=== PATIENT | female | born 1995 | race Hispanic/Latino ===

== ENCOUNTER 2019-10-15 11:59 | Emergency (ER) | payer OTHER, SELFPAY ==
[~2019-10-15] VITALS: Ht 165.1 cm; Wt 103.2 kg
[2019-10-15] MEDS ORDERED: NS 1,000 ML IV ONE (13:15)
[2019-10-15] MEDS ORDERED: ISOVUE-370 76% 100ML VIAL (Q9967) As Ordered ONE (13:38)
[2019-10-15 13:41] LABS: HEMATOCRIT 40.9 % (36.0-47.0); HEMOGLOBIN 13.6 g/dl (12.0-15.5); MEAN CORPUSCULAR HEMOGLOBIN 29.1 pg (27.0-33.0); MEAN CORPUSCULAR HGB CONC 33.3 g/dl (32.0-36.5); MEAN CORPUSCULAR VOLUME 87.6 fl (80.0-96.0); PLATELET COUNT, AUTOMATED 323 10^3/uL (150-450); RED BLOOD COUNT 4.67 10^6/uL (4.00-5.40); WHITE BLOOD COUNT 5.3 10^3/uL (4.0-10.0)
--- NOTE | 2019-10-15 14:30 | REP ---
CT ANGIOGRAM CHEST: TECHNIQUE: Axial contrast enhanced images from the thoracic inlet to the upper abdomen using 100 mL Isovue 370 intravenous contrast material with multiplanar reformations. There is no evidence of pulmonary embolism. There is no thoracic aortic aneurysm or dissection. Residual thymic tissue is seen in the anterior mediastinum. There is no mediastinal, hilar, or chest wall lymphadenopathy. There is no pleural or pericardial effusion. There are bilateral breast implants noted. The lungs are clear with no infiltrate. There is a small hiatal hernia. IMPRESSION: No CT evidence of pulmonary embolism. Small hiatal hernia. Electronically Signed by Marshall Gonzalez MD 10/15/2019 07:36 P
[2019-10-15 14:50] VITALS: BP 121/75
== END 2019-10-15 15:02 | disposition home or self-care (01) ==
LOC: M ED 11:59
DX: F41.9 Anxiety disorder, unspecified (principal); R20.2 Paresthesia of skin; K44.9 Diaphragmatic hernia without obstruction or gangrene
CPT/HCPCS: 36415; 71275; 80047; 84702; 85027; 96360; 99284; Q9967

== ENCOUNTER → 2020-01-05 | Outpatient (REF) | payer OTHER | LOC: M LAB REF 12:14 | PROVIDERS: ATTEND Physician Assistant Medical | DX: R52 Pain, unspecified (principal) ==